=== PATIENT | female | born 1980 | race Caucasian/White ===

== ENCOUNTER → 2017-05-26 | Outpatient (CLI) | payer BC ==
[2017-05-26 16:45] LABS: HEMATOCRIT 44.2 % (34.6-47.8); HEMOGLOBIN 14.9 g/dL (11.7-16.4); WHITE BLOOD COUNT 8.7 x10^3/uL (3.4-10)
== END | disposition home or self-care (01) ==
LOC: LAB 16:22
PROVIDERS: ATTEND Family Medicine
DX: R59.1 Generalized enlarged lymph nodes (principal)
CPT/HCPCS: 36415; 85025